=== PATIENT | male | born 1965 | race Asian ===

== ENCOUNTER 2022-03-14 09:42 | Outpatient (REF) | payer BC, SELFPAY ==
--- NOTE | ~2022-03-14 | MR_ITS ---
EXAMINATION: MR ABDOMEN WITHOUT AND WITH CONTRAST CLINICAL INFORMATION: Liver disease, hemangiomas. COMPARISON: Report from outside ultrasound [facility] dated 08/15/2019. TECHNIQUE: MR abdomen was performed without and with use of 10 mL intravenous Gadavist gadolinium contrast. Postcontrast images are performed in multiphase dynamic sequences. Imaging was performed in 3 planes. FINDINGS: LUNG BASES: The visualized lung bases are unremarkable. LIVER, GALLBLADDER, AND BILIARY TREE: The liver is normal in size and smooth in contour. The parenchyma areas normal in signal. There is no signal loss on out of phase imaging to suggest hepatic steatosis. There are scattered simple cysts throughout the liver, largest is right lobe subcapsular segment 7 measuring 4.0 x 5.2 x 5.5 cm. The next largest is left lobe segment 2 measuring 1.7 cm. Other cysts are smaller in size. There is a benign hemangioma straddling right and left lobes measuring approximately 3.9 x 3.8 x 4.1 cm circumscribed lobulated contour, high signal T2, and with typical centripetal peripheral globular enhancement on multiphase imaging. There is a 1.1 cm subcapsular hemangioma suggested posterior lateral right lobe segment 7. There is no suspicious arterial enhancing lesion. Gallbladder has multiple stones. No gallbladder wall thickening. No intrahepatic or extrahepatic ductal dilatation. Common duct normal in caliber. No choledocholithiasis. PANCREAS: Normal in size and contour and enhancement. Normal pancreatic duct. SPLEEN: Normal in size, homogeneous ADRENAL GLANDS: Normal. KIDNEYS AND URETERS: The kidneys are normal in size, shape, and enhance symmetrically. No hydronephrosis. No perinephric stranding. GASTROINTESTINAL TRACT: No bowel obstruction. Normal appendix. No ascites or fluid collection. ABDOMINAL WALL: No significant hernia is appreciated. LYMPH NODES: No lymphadenopathy. VASCULAR: Unremarkable. OSSEOUS STRUCTURES: Degenerative disc changes L4-L5 with disc narrowing and endplate signal change and osteophytes. MR/MR abdomen wo/w con IMPRESSION: -Benign hepatic hemangiomas, 4.1 cm and 1.1 cm. -Multiple hepatic cysts, largest 5.5 cm, and next largest 1.7 cm. -Cholelithiasis. No gallbladder wall thickening or ductal dilatation. -Normal pancreas. -Degenerative disc changes L4-L5.
== END 2022-03-14 09:43 | disposition home or self-care (01) ==
LOC: HO.MRI 09:42
PROVIDERS: Visit Provider Nurse Practitioner Family
DX: K76.9 Liver disease, unspecified (principal)
CPT/HCPCS: 74183; A9585